=== PATIENT | male | born 1990 | race Caucasian/White ===

== ENCOUNTER 2018-11-15 21:31 | Emergency (ER) | payer SELFPAY ==
--- NOTE | 2018-11-15 22:17 | RADIOLOGY REPORT (SQ) ---
EXAM DESCRIPTION: XR WRIST 3 OR MORE VIEWS BILATERAL COMPLETED DATE/TME: 11/15/2018 21:46 CLINICAL HISTORY: 28 years, Male, wrist pain COMPARISON: None. NUMBER OF VIEWS: 3 TECHNIQUE: 3 view right wrist LIMITATIONS: None. FINDINGS: Negative for acute fracture or dislocation. Diffuse soft tissue swelling of the wrist and hand. No soft tissue gas. IMPRESSION: Diffuse soft tissue swelling copyright 2010 [employer]- All Rights Reserved
--- NOTE | 2018-11-15 22:17 | RADIOLOGY REPORT (SQ) ---
EXAM DESCRIPTION: XR HAND 3 OR MORE VIEWS COMPLETED DATE/TME: 11/15/2018 21:46 CLINICAL HISTORY: 28 years, Male, pain/swelling to right hand COMPARISON: None. NUMBER OF VIEWS: 3 TECHNIQUE: 3 view right hand LIMITATIONS: None. FINDINGS: Soft tissue swelling along the ulnar aspect of the hand and dorsum of the hand. Negative for acute fracture or dislocation. The joint spaces are preserved. IMPRESSION: Diffuse soft tissue swelling with no acute fracture copyright 2010 [employer]- All Rights Reserved
--- NOTE | 2018-11-15 23:48 | ER Document Report ---
ED Medical Screen (RME) - General Chief Complaint: Wrist Pain Stated Complaint: RIGHT HAND INJURY Time Seen by Provider: 11/15/18 23:38 Mode of Arrival: Ambulatory Information source: Patient Notes: 28-year-old male presented to ED for complaint of pain and swelling for the last 3 days to his right hand. He states he has not injured his hand. There is no cut or abrasions to his hand. The hand is red and swollen. He states it is becoming more more painful each day. The [facility] nurse ordered a x-ray the x-ray showed generalized swelling to the hand and wrist but there is no broken bones. I have consulted Dr. Vazquez who will come and examined the patient and treat him. I have greeted and performed a rapid initial assessment of this patient. A comprehensive ED assessment and evaluation of the patient, analysis of test results and completion of medical decision making process will be conducted by an additional ED providers. Dictation of this chart was performed using voice recognition software; therefore, there may be some unintended grammatical errors. TRAVEL OUTSIDE OF THE [place] IN LAST 30 DAYS: No - Related Data Allergies/Adverse Reactions: No Known Allergies Allergy (Verified 11/15/18 21:45) Past Medical History - Social History Frequency of alcohol use: None Drug Abuse: None Renal/ Medical History: Denies: Hx Peritoneal Dialysis - Immunizations Immunizations up to date: Yes Hx Diphtheria, Pertussis, Tetanus Vaccination: Yes
[2018-11-16] MEDS ORDERED: ACETAMINOPHEN 325 MG TABLET PO ONE (00:04)
[2018-11-16] MEDS ORDERED: CEPHALEXIN 500 MG CAPSULE PO ONE (00:29)
--- NOTE | 2018-11-16 00:35 | ER Document Report ---
ED General - General Chief Complaint: Wrist Pain Stated Complaint: RIGHT HAND INJURY Time Seen by Provider: 11/15/18 23:38 Mode of Arrival: Ambulatory Notes: Patient is a 28-year-old male without chronic medical problems who presents with approximately 1 week of progressively worsening swelling and pain to his right hand. Patient is left-hand dominant. Describes the pain in the right hand as being a throbbing, aching, constant discomfort. Worsened by use of the hand. Has not tried anything for improvement of the pain. No history of similar issues in the past. Denies fever or constitutional symptoms. Notes that the area is red and hot to touch. Has not seen his primary care doctor regarding today's concerns. Denies any injury to the area. TRAVEL OUTSIDE OF THE [place] IN LAST 30 DAYS: No - Related Data Allergies/Adverse Reactions: No Known Allergies Allergy (Verified 11/15/18 21:45) Past Medical History - General Information source: Patient - Social History Smoking Status: Current Every Day Smoker Frequency of alcohol use: None Drug Abuse: None Family History: Reviewed & Not Pertinent Patient has suicidal ideation: No Patient has homicidal ideation: No Renal/ Medical History: Denies: Hx Peritoneal Dialysis - Immunizations Immunizations up to date: Yes Hx Diphtheria, Pertussis, Tetanus Vaccination: Yes Review of Systems - Review of Systems Notes: Constitutional: Negative for fever. HENT: Negative for sore throat. Eyes: Negative for visual changes. Cardiovascular: Negative for chest pain. Respiratory: Negative for shortness of breath. Gastrointestinal: Negative for abdominal pain, vomiting or diarrhea. Genitourinary: Negative for dysuria. Musculoskeletal: Positive right hand pain Skin: Positive for rash. Neurological: Negative for headaches, weakness or numbness. 10 point ROS negative except as marked above and in HPI. Physical Exam - Vital signs Interpretation: Normal Notes: PHYSICAL EXAMINATION: GENERAL: Well-appearing, well-nourished and in no acute distress. HEAD: Atraumatic, normocephalic. EYES: Pupils equal round and reactive to light, extraocular movements intact, sclera anicteric, conjunctiva are normal. ENT: nares patent, oropharynx clear without exudates. Moist mucous membranes. NECK: Normal range of motion, supple without lymphadenopathy LUNGS: Breath sounds clear to auscultation bilaterally and equal. No wheezes rales or rhonchi. HEART: Regular rate and rhythm without murmurs ABDOMEN: Soft, nontender, normoactive bowel sounds. No guarding, no rebound. No masses appreciated. EXTREMITIES: Normal range of motion, specifically full flexion extension at the DIP, PIP and MCP of all digits of the right hand. Full flexion and extension at the level of the right wrist. Mild diffuse swelling to the dorsum of the right hand. No cyanosis. NEUROLOGICAL: No focal neurological deficits. Moves all extremities spontaneously and on command. PSYCH: Normal mood, normal affect. SKIN: Warm, Dry, normal turgor, diffuse erythema and swelling to the dorsum of the right hand Course - Re-evaluation Re-evalutation: 11/16/18 00:34 Patient presents with symptoms most consistent with an acute cellulitis of the right hand. Patient is left-hand dominant. Vitals within normal limits. Patient does not meet sepsis criteria is overall very well in appearance. Exam and history are not consistent with DVT. X-ray of the hand and wrist are noted to be normal with exception of soft tissue swelling. Patient has been started on oral cephalexin. Do not suspect flexor tenosynovitis, exam not consistent with this diagnosis. Nothing to suggest fluid collection or abscess. At this time will discharge with return precautions and follow-up recommendations. Verbal discharge instructions given a the bedside and opportunity for questions given. Medication warnings reviewed. Patient is in agreement with this plan and has verbalized understanding of return precautions and the need for primary care follow-up in the next 24-72 hours. - Diagnostic Test Radiology reviewed: Image reviewed, Reports reviewed Radiology results interpreted by me: 11/16/18 00:34 Right hand x-ray: No acute fracture or dislocation Right wrist x-ray: No acute fracture or dislocation Discharge - Discharge Clinical Impression: Cellulitis of right hand, Swelling of right hand Condition: Good Disposition: HOME, SELF-CARE Additional Instructions: The rash is likely due to infection of your skin. You need to take the antibiotics as prescribed. Do not stop even if the rash goes away until you have completed all the antibiotics. You should also return if you develop fevers with temperature greater than 101, persistent vomiting, worsening pain, or have any other symptoms that are concerning to you. Prescriptions: Cephalexin Monohydrate [Keflex 500 mg Capsule] 500 mg PO Q6H 7 Days capsule Forms: Return to Work
== END 2018-11-16 00:43 | disposition home or self-care (01) ==
LOC: ER 21:31
DX: L03.113 Cellulitis of right upper limb (principal); M79.89 Other specified soft tissue disorders; M79.641 Pain in right hand
CPT/HCPCS: 99283